=== PATIENT | male | born 1960 | race Caucasian/White ===

== ENCOUNTER 2025-03-10 08:01 | Outpatient (CLI) | payer BC, SELFPAY | END 2025-03-10 08:02 | disposition home or self-care (01) | LOC: NFLDREF 03-14 16:23 | PROVIDERS: PCP Family Medicine; Referring Provider Family Medicine; Visit Provider Family Medicine | DX: E78.5 Hyperlipidemia, unspecified (principal); Z12.5 Encounter for screening for malignant neoplasm of prostate | CPT/HCPCS: 80053; 80061; G0103 ==